=== PATIENT | male | born 1985 | race African-American/Black ===

== ENCOUNTER 2022-05-18 02:43 | Emergency (ER) | payer SELFPAY ==
[2022-05-18] MEDS ORDERED: Boostrix 0.5 ML (Tdap) VIAL (>/=7 yrs of age) ONE (03:35)
== END 2022-05-18 04:20 | disposition home or self-care (01) ==
LOC: CSHERS 02:43
DX: T75.4XXA Electrocution, initial encounter (principal); R42 Dizziness and giddiness; R06.00 Dyspnea, unspecified; J45.909 Unspecified asthma, uncomplicated; F17.210 Nicotine dependence, cigarettes, uncomplicated; Z23 Encounter for immunization
CPT/HCPCS: 71045; 90715; 93005